=== PATIENT | male | born 2000 | race Two or more races ===

== ENCOUNTER 2023-06-02 13:54 | Emergency (ER) | payer OTHER ==
[~2023-06-02] VITALS: Ht 167.6 cm; Wt 87.1 kg
== END 2023-06-02 19:04 | disposition home or self-care (01) ==
LOC: ER 13:54
DX: S29.012A Strain of muscle and tendon of back wall of thorax, initial encounter (principal); X58.XXXA Exposure to other specified factors, initial encounter; Y93.89 Activity, other specified; Y92.89 Other specified places as the place of occurrence of the external cause; Y99.9 Unspecified external cause status

== ENCOUNTER 2023-07-10 09:31 | Emergency (ER) | payer OTHER ==
[~2023-07-10] VITALS: Ht 167.6 cm; Wt 88.9 kg
[2023-07-10] MEDS ORDERED: ZITHROMAX200 MG PO (13:47)
== END 2023-07-10 14:07 | disposition home or self-care (01) ==
LOC: ER 09:31
DX: J02.8 Acute pharyngitis due to other specified organisms (principal); B97.89 Other viral agents as the cause of diseases classified elsewhere

== ENCOUNTER 2023-10-25 04:01 | Inpatient (IN) | payer OTHER ==
[~2023-10-25] VITALS: Ht 167.6 cm; Wt 77.1 kg
[~2023-10-25 04:01] MED LIST: ZITHROMAX200 MG PO
[2023-10-25] MEDS ORDERED: 0.9 % SODIUM CHLORIDE 1,000 ML IV STA (04:42)
[2023-10-25] MEDS ORDERED: HYOSCYAMINE SULFATE 0.125 MG TAB.SUBL SL STA (04:42)
[2023-10-25] MEDS ORDERED: ONDANSETRON HCL 2 MG/ML VIAL IV STA (04:43)
[2023-10-25] MEDS ORDERED: PROMETHAZINE HCL 50 MG/ML AMPUL IM STA (04:43)
[2023-10-25] MEDS ORDERED: MEPERIDINE HCL/PF 50 MG/ML VIAL IM STA (04:43)
[2023-10-25 05:18] LABS: HEMATOCRIT 44.6 % (39.0-48.0); HEMOGLOBIN 15.8 g/dL (13-16.00); MEAN CELL VOLUME 83.5 fL (80.0-100.00); MEAN CORPUSCULAR HEMOGLOBIN 29.6 pg (27.00-32.0); MEAN CORPUSCULAR HGB CONC 35.5 g/dl (32.0-36.0); PLATELET COUNT 284 K/uL (150-450); RED BLOOD COUNT 5.34 M/uL (4.00-6.00); RED CELL DISTRIBUTION WIDTH 12.4 % (11.5-14.5)
[2023-10-25 05:38] LABS: ALBUMIN 4.2 gm/dL (3.4-5.0); BILIRUBIN TOTAL 0.69 mg/dL (0.3-1.2); CALCIUM 9.5 mg/dL (8.5-10.1); CREATININE SERUM 0.98 mg/dL (0.70-1.30); GFR 94.78; GLOBULINA 3.7 G/DL (2.4-3.5); POTASSIUM 3.21 mEq/L (3.5-5.1); TOTAL PROTEIN 7.9 gm/dL (6.4-8.2)
[2023-10-25 06:00] LABS: INR < 0.93; PARTIAL THROMBOPLASTIN TIME 26.1 SECONDS (22.0-34.0); PROTHROMBIN TIME 9.8 SECONDS (9.0-11.5)
[2023-10-25] MEDS ORDERED: PIPERACILLIN/TAZOBACTAM SODIUM 3.375 GM VIAL IV STA (07:30)
[2023-10-25] MEDS ORDERED: GENTAMICIN SULFATE 40 MG/ML VIAL IV STA (07:30)
[2023-10-25 08:08] LABS: URINE APPEARANCE Clear; URINE BILIRRUBIN Negative (NEGATIVE); URINE BLOOD Negative; URINE COLOR Yellow; URINE GLUCOSE Negative (NEGATIVE); URINE LEUKOCYTE Negative; URINE NITRATE Negative; URINE PROTEIN Negative (NEGATIVE); URINE UROBILINOGEN 0.2 E.U./dl
[2023-10-25 08:12] LABS: URINE BACTERIA 11.3 uL (0.0-1933)
[2023-10-25 08:22] LABS: URINE EPITHELIAL CELLS 0.7 uL (0.0-38.8); URINE RBC 1.7 uL (0.0-20.8); URINE WBC 1.6 uL (0.0-23.2)
[2023-10-25] MEDS ORDERED: POTASSIUM CHLORIDE IN WATER 100 ML IV SCH (09:41)
[2023-10-25] MEDS ORDERED: 0.9 % SODIUM CHLORIDE 1,000 ML IV SCH (12:15)
[2023-10-25] MEDS ORDERED: SUGAMMADEX SODIUM 200 MG/2 ML VIAL IV ONE (12:44)
[2023-10-25] MEDS ORDERED: LIDOCAINE HCL 1%/Epi 20ML VIAL IJ ONE (12:45)
[2023-10-25] MEDS ORDERED: MORPHINE SULFATE 4 MG/ML CARTRIDGE IV PRN (17:30)
[2023-10-26] MEDS ORDERED: PIPERACILLIN/TAZOBACTAM SODIUM 3.375 GM in 0.9 % SODIUM CHLORIDE 100 ML IV SCH (06:00)
[2023-10-26 08:22] LABS: HEMATOCRIT 40.1 % (39.0-48.0); HEMOGLOBIN 14.1 g/dL (13-16.00); MEAN CELL VOLUME 84.7 fL (80.0-100.00); MEAN CORPUSCULAR HEMOGLOBIN 29.8 pg (27.00-32.0); MEAN CORPUSCULAR HGB CONC 35.2 g/dl (32.0-36.0); PLATELET COUNT 223 K/uL (150-450); RED BLOOD COUNT 4.73 M/uL (4.00-6.00); RED CELL DISTRIBUTION WIDTH 12.5 % (11.5-14.5)
[2023-10-26 08:45] LABS: ALBUMIN 3.6 gm/dL (3.4-5.0); BILIRUBIN TOTAL 1.14 mg/dL (0.3-1.2); CALCIUM 9.1 mg/dL (8.5-10.1); CREATININE SERUM 0.81 mg/dL (0.70-1.30); GFR 118.09; GLOBULINA 2.8 G/DL (2.4-3.5); POTASSIUM 3.9 mEq/L (3.5-5.1); TOTAL PROTEIN 6.4 gm/dL (6.4-8.2)
== END 2023-10-27 14:24 | disposition home or self-care (01) | DRG 399 ==
LOC: ER 04:01 → SEC-K 12:42 → SURH 12:42 → O/R 14:24 → SURH 17:11
PROVIDERS: Specialist; Student in an Organized Health Care Education/Training Program; ADMIT Internal Medicine; ATTEND Internal Medicine
PROC: 0DTJ4ZZ Resection of Appendix, Percutaneous Endoscopic Approach (ICD-10-PCS; principal; 2023-10-25 12:00)
DX: K35.80 Unspecified acute appendicitis (principal)

== ENCOUNTER 2024-07-13 12:49 | Emergency (ER) | payer OTHER ==
[~2024-07-13] VITALS: Ht 165.1 cm; Wt 88.5 kg
[2024-07-13] MEDS ORDERED: KETOROLAC TROMETHAMINE 60 MG VIAL IM ONE (16:00)
[2024-07-13] MEDS ORDERED: ORPHENADRINE CITRATE 30 MG/ML AMPUL IM ONE (16:00)
[2024-07-13] MEDS ORDERED: NORFLEX100MG PO (16:37)
[2024-07-13] MEDS ORDERED: DICLOFENAC SODI50 MG PO (16:37)
== END 2024-07-13 17:08 ==
LOC: ER 12:51
DX: S39.012A Strain of muscle, fascia and tendon of lower back, initial encounter (principal); X58.XXXA Exposure to other specified factors, initial encounter; Y93.89 Activity, other specified; Y92.89 Other specified places as the place of occurrence of the external cause; Y99.8 Other external cause status